=== PATIENT | female | born 1970 | race Caucasian/White ===

== ENCOUNTER → 2017-08-26 | Outpatient (CLI) | payer BC ==
--- NOTE | 2017-08-26 12:56 | DIAGNOSTIC IMAGING REPORT ---
CERVICAL WITHOUT CONTRAST CLINICAL HISTORY: 47 years-old Female presenting with HERNIATION OF CERV DISC W/RADICULOPATHY, neck pain and tingling, headaches. TECHNIQUE: Multisequence, multiplanar MR imaging of the cervical spine was performed without the use of intravenous contrast. Dynamic imaging with flexion and extension was also performed. IV contrast: None. COMPARISON: None. FINDINGS: Localizer images: Unremarkable. Straightening of normal cervical lordosis, likely due to multilevel degenerative changes. Vertebral bodies maintain normal height and alignment. Intervertebral disc desiccation noted diffusely with disc osteophyte complexes evident at nearly every level. Calcification of the posterior longitudinal ligament suggested. On flexion imaging, slight reversal of normal cervical lordosis in the lower cervical spine. Expected diminished ventral CSF space at the site of kyphosis with mild contouring of the spinal cord. No convincing evidence of impingement. On extension imaging, normal cervical lordosis evident. However, severe stenosis results with circumferential effacement of CSF and flattening of the spinal cord at C5-6 and C6-7. Multilevel degenerative changes further detailed below: C2-3: No significant neural foraminal or spinal canal narrowing. C3-4: No significant neural foraminal or spinal canal narrowing. Minimal disc osteophyte complex or posterior longitudinal ligament calcification effaces the central thecal sac ventrally. C4-5: Small disc osteophyte complex without significant spinal canal or neural foraminal narrowing. C5-6: Disc osteophyte complex results in effacement of the ventral thecal sac. Ligamentum flavum thickening further effaces the dorsal thecal sac. Mild contouring of the spinal cord at this level. No abnormal spinal cord signal intensity. No significant neural foraminal narrowing. C6-7: Disc osteophyte complex results in effacement of the ventral thecal sac. Ligamentum flavum thickening further effaces the dorsal thecal sac. Contouring of the spinal cord at this level. No abnormal spinal cord signal intensity. Mild bilateral neural foraminal narrowing may be present. C7-T1: Disc osteophyte complex results in left paracentral effacement of the thecal sac and left lateral recess as well as mild left neural foraminal narrowing. Cervical spinal cord maintains normal morphology and signal intensity apart from contouring deformities as detailed above. Craniocervical junction normal. No paraspinal edema. At the level of the thoracic inlet along the left lateral aspect of the trachea and esophagus, there is either a prominent node or mass is evident (series 6 image 136; series 7 image 19). This is heterogeneous and partially obscured on sagittal imaging due to the saturation band. IMPRESSION: 1. Findings concerning for a mass at the thoracic inlet. This may represent an enlarged node or mass. Further evaluation with contrast-enhanced CT of the neck recommended. 2. Multilevel degenerative changes with possible calcification of the posterior longitudinal ligament. Dynamic imaging demonstrates findings suspicious for impingement of the spinal cord at C5-6 and C6-7 with extension. No impingement with flexion. 3. Mild neural foraminal narrowing as detailed above. The report will be called/faxed according to standard departmental protocol. Electronically signed by: Moris Gomez M.D. 08/26/2017 12:55 PM Dictated Date/Time: 08/26/2017 12:46 PM
== END | disposition home or self-care (01) ==
LOC: C.MRIBC 11:11
PROVIDERS: ATTEND Neurological Surgery
DX: M50.10 Cervical disc disorder with radiculopathy, unspecified cervical region (principal); Z88.2 Allergy status to sulfonamides; Z88.8 Allergy status to other drugs, medicaments and biological substances

== ENCOUNTER → 2017-09-12 | Outpatient (CLI) | payer BC ==
[~2017-09-12] MED LIST: OPTIRAY 320 IV PRN
--- NOTE | 2017-09-12 14:02 | DIAGNOSTIC IMAGING REPORT ---
CT OF THE NECK WITH CONTRAST CLINICAL HISTORY: Neck mass. COMPARISON STUDY: MRI of the cervical spine August 26, 2017. TECHNIQUE: Axial images of the neck were obtained following intravenous injection of 94 cc Optiray 320 IV. FINDINGS: Visualized portions of the intracranial contents are unremarkable. No cervical lymphadenopathy is present. Note is made of a 4 x 2.4 x 1.4 cm exophytic nodule which arises from the lower pole of the left thyroid lobe. This represents the lesion shown on MRI of August 26, 2017 and represents a thyroid nodule. There may be a few subcentimeter additional thyroid nodules. Parotid and submandibular glands are normal. No mucosal lesion is identified. Lung apices are clear. IMPRESSION: 4 x 2.4 x 1.4 cm exophytic nodule arising from the lower pole of the left thyroid lobe which accounts for the finding on MRI of August 26, 2017. This nodule is statistically benign but indeterminate. Ultrasound-guided fine needle aspiration may be difficult given the location of the nodule but could be attempted. Electronically signed by: Eliot Mayer M.D. 09/12/2017 2:00 PM Dictated Date/Time: 09/12/2017 1:50 PM
== END | disposition home or self-care (01) ==
LOC: C.CTS 13:30
PROVIDERS: ATTEND Neurological Surgery
DX: E04.1 Nontoxic single thyroid nodule (principal)